=== PATIENT | female | born 1990 | race Caucasian/White ===

== ENCOUNTER 2016-07-27 15:08 | Emergency (ER) | payer OTHER ==
--- NOTE | 2016-07-27 15:39 | ED NURSING NOTES ---
Clinical Report - Nurses [facility] [address] [place] [address] 07/27/2016 15:08 Patient: SRI JEAN TRIAGE Triage time 1522 PM. Acuity: LEVEL 5. Chief Complaint: (Right wisdom teeth radiating to neck pain). Alert. No acute distress. JASWINDER COMA SCORE: Jaswinder Coma Scale: 15- eyes open spontaneously (4); best verbal response- oriented x 4 (5); best motor response- obeys commands (6). --15:30 Brigitte Vidales R.N. 15:22 07/27/16. BP: 122/73 (regular adult cuff) taken on the left arm, while sitting. HR: 90. RR: 15. O2 saturation: 100% on room air. Temp: 98 F. Pain level now: 03/05. --15:30 Brigitte Vidales R.N. Weight: 83.9 kg stated. Height/Length: 63 inches Per Patient. BMI: 32.8. --15:22 Brigitte Vidales R.N. Medications None. --15:24 Brigitte Vidales R.N. Allergies No Known Drug Allergy. --15:24 Brigitte Vidales R.N. Medication/allergy information source: the patient. --15:30 Brigitte Vidales R.N. History Arrived by private vehicle. Historian: patient. Primary physician ([facility]). ( PT states has been having trouble with wisdom (right side) since last year, due to insurance has not been able to get them "out" Pt has was told that needed to have general surgery due to anxiety and has tried contacting [facility] multiple times. Is afraid that is "infected"). This started last night. No fever, weakness, cough, difficulty breathing or skin rash. Denies muscle aches. Treatment HOSPITAL NURSING ASSISTANT: Took ibuprofen. PAST MEDICAL HX: Immunizations: status is unknown. SOCIAL HX: Light tobacco smoker- less than 1/2 a pack per day. No alcohol use or drug use. No infectious disease exposure. ABUSE ASSESSMENT: No report of abuse. SELF HARM ASSESSMENT: A self harm assessment was performed. The patient answered "no" to the question "Do you have thoughts of harming or killing yourself?" and "Have you recently had thoughts about harming or killing others?". FALL RISK ASSESSMENT: Fall risk assessment completed. No fall risk identified. NUTRITIONAL RISK ASSESSMENT: The nutritional risk assessment revealed no deficiencies. FUNCTIONAL ASSESSMENT: Functional assessment: no impairments noted. LEARNING NEEDS ASSESSMENT: The learning needs assessment revealed no barriers. SKIN INTEGRITY ASSESSMENT: Skin integrity risk assessment completed. No skin integrity risk identified. --15:30 Brigitte Vidales R.N. PROBLEMS: Dental Pain. Bronchitis. Asthma. Tension-Type Headache. Headache. Pharyngitis. Immunizations. LNMP - Last Normal Menstrual Period. --15:24 Brigitte Vidales R.N. ADDITIONAL SURGERIES: no known surgeries. Interventions ID band on patient. --15:30 Brigitte Vidales R.N. PHYSICAL ASSESSMENT Ambulatory to room. GENERAL / NEURO / PSYCH: Alert. Oriented X 4. Appears in no acute distress. Appears in pain. HEENT: Mucous membranes are pink. RESPIRATORY: Respirations not labored. Breath sounds within normal limits. SKIN: Skin intact. Skin is warm and dry. Normal skin turgor. --15:31 Briigtte Vidales R.N. NURSING PROGRESS NOTES The initial plan of care for this patient has been created This plan of care was discussed with the patient. Reassurance given. Two patient identifiers checked. Call light placed in reach. Brakes of bed on. Brakes of chair on. --15:31 Brigitte Vidales R.N. DISPOSITION / DISCHARGE Departure time: 1540 PM. Condition at departure: stable. The goals identified in the patient's plan of care were met. No learning barriers present. Discharge instructions provided and reviewed with the patient. Reviewed medication(s) side effects, precautions, dosing and course information. Prescription(s) given to the patient. Reviewed referral to a dentist for followup. Patient verbalized understanding. Written instructions provided in Armenian. ( Print out given of low cost dentist in the area). No diet instructions or activity restrictions. FALL RISK ASSESSMENT: Fall risk assessment completed. No fall risk identified. --15:44 Brigitte Vidales R.N. 15:35 07/27/16. BP: 124/87 (regular adult cuff) taken on the left arm, via an automated monitor, while sitting. HR: 90. RR: 16. O2 saturation: 100%. Temp: 98 F (oral). Pain level now: 02/02. --15:44 Brigitte Vidales R.N. Locked/Released at 07/27/2016 15:44 by Brigitte Vidales R.N.
--- NOTE | 2016-07-27 15:39 | ED CLINICAL REPORT ---
Clinical Report - Physicians/Mid Levels [facility] [address] [place] [address] 07/27/2016 15:08 [id number] Time Seen: 15:35 Jul 27 2016. Arrived- By private vehicle. Historian- patient. HISTORY OF PRESENT ILLNESS Chief Complaint: DENTAL PAIN. This started months ago but worsening over the last 2 weeks. and is still present (worse). Pain described as moderate. No sore throat, nasal discharge, ear pain or swollen jaw or face. No jaw pain or facial pain. She has had toothache. (Patient says that her dentist told her she needs to have her wisdom teeth taken out because they are crowding the other teeth. However, she has a history of anxiety and says she needs general anesthesia. She has been trying to find a dentist who will perform this.). Similar symptoms previously: Recent medical care: Not recently seen/assessed. REVIEW OF SYSTEMS No fever, nausea, headache, vomiting or chest pain. All systems otherwise negative, except as recorded above. PAST HISTORY Negative. No history of heart disease, renal disease or diabetes mellitus. SOCIAL HISTORY Smoker- current status unknown. PHYSICAL EXAM Appearance: No acute distress. Head: Normal external inspection. Eyes: Pupils equal, round and reactive to light. Conjunctivae and eyelids normal. ENT: Ears normal. Right lower third molar(s): (soft tissue overgrowth of the right third molar. No erythema, edema or discharge.). No fracture. Pharynx normal. Lips normal. Gums normal. No trismus present. Uvula midline. Neck: Normal inspection. Trachea midline. No adenopathy. Neck supple. Respiratory: No respiratory distress. Skin: Normal skin color. Normal skin turgor. Extremities: Extremities exhibit normal ROM. Neuro: Oriented X 3. PROGRESS AND PROCEDURES Course of Care: 15:48 07/27/16. Patient stable. This is a long-standing issue which has slowly been getting worse. No evidence of abscess or deep space infection at this time. Recommended salt water gargles, retraction of the overgrowing skin with a toothbrush, Tylenol and ibuprofen for pain. Primarily she needs to find a dentist. Offered a few sleeping pillsas she says primarily the pain is worse at night, however, she declines this. Differential Diagnosis: I considered migraine, bacterial meningitis, trigeminal neuralgia and muscle tension as a possible cause of headache in this patient. CLINICAL IMPRESSION Moderate dental pain. INSTRUCTIONS No dietary restrictions. Do not smoke. Warnings: GENERAL WARNINGS: Return or contact your physician immediately if your condition worsens or changes unexpectedly, if not improving as expected, or if other problems arise. Specifically return if vomiting or fever worsens. OTC Medications: Take acetaminophen (Tylenol, Datril, etc.) and ibuprofen (Advil, Nuprin, etc.) according to label instructions. Available over the counter. Follow-up: Follow up with doctor [facility] Mekhi; [facility] [place] [address]; . Understanding of the discharge instructions verbalized by patient. Follow-up with: Susan Gomez MD, [facility], , [facility], [address] [place] [address] Follow up as needed. Reason for referral: to [facility] a primary care provider. (Electronically signed by Pio Hood, 07/27/2016 16:26) Anastasia holt SRI JEAN VisitID: [id number] Date: 07/27/2016 07/27/2016 15:44 Plan of care and patient's course as well as examination is been reviewed verbally with the provider myself. I have reviewed the patient's chart up until this point and agree with the assessment and plan. (Electronically signed by Gregg Shahid Dr. - 07/27/2016 15:44)
--- NOTE | 2016-07-27 15:39 | ED CLINICAL REPORT ---
Clinical Report - Physicians/Mid Levels [facility] [address] [place] [address] 07/27/2016 15:08 [id number] Time Seen: 15:35 Jul 27 2016. Arrived- By private vehicle. Historian- patient. HISTORY OF PRESENT ILLNESS Chief Complaint: DENTAL PAIN. This started months ago but worsening over the last 2 weeks. and is still present (worse). Pain described as moderate. No sore throat, nasal discharge, ear pain or swollen jaw or face. No jaw pain or facial pain. She has had toothache. (Patient says that her dentist told her she needs to have her wisdom teeth taken out because they are crowding the other teeth. However, she has a history of anxiety and says she needs general anesthesia. She has been trying to find a dentist who will perform this.). Similar symptoms previously: Recent medical care: Not recently seen/assessed. REVIEW OF SYSTEMS No fever, nausea, headache, vomiting or chest pain. All systems otherwise negative, except as recorded above. PAST HISTORY Negative. No history of heart disease, renal disease or diabetes mellitus. SOCIAL HISTORY Smoker- current status unknown. PHYSICAL EXAM Appearance: No acute distress. Head: Normal external inspection. Eyes: Pupils equal, round and reactive to light. Conjunctivae and eyelids normal. ENT: Ears normal. Right lower third molar(s): (soft tissue overgrowth of the right third molar. No erythema, edema or discharge.). No fracture. Pharynx normal. Lips normal. Gums normal. No trismus present. Uvula midline. Neck: Normal inspection. Trachea midline. No adenopathy. Neck supple. Respiratory: No respiratory distress. Skin: Normal skin color. Normal skin turgor. Extremities: Extremities exhibit normal ROM. Neuro: Oriented X 3. PROGRESS AND PROCEDURES Course of Care: 15:48 07/27/16. Patient stable. This is a long-standing issue which has slowly been getting worse. No evidence of abscess or deep space infection at this time. Recommended salt water gargles, retraction of the overgrowing skin with a toothbrush, Tylenol and ibuprofen for pain. Primarily she needs to find a dentist. Offered a few sleeping pillsas she says primarily the pain is worse at night, however, she declines this. Differential Diagnosis: I considered migraine, bacterial meningitis, trigeminal neuralgia and muscle tension as a possible cause of headache in this patient. CLINICAL IMPRESSION Moderate dental pain. INSTRUCTIONS No dietary restrictions. Do not smoke. Warnings: GENERAL WARNINGS: Return or contact your physician immediately if your condition worsens or changes unexpectedly, if not improving as expected, or if other problems arise. Specifically return if vomiting or fever worsens. OTC Medications: Take acetaminophen (Tylenol, Datril, etc.) and ibuprofen (Advil, Nuprin, etc.) according to label instructions. Available over the counter. Follow-up: Follow up with doctor [facility] Mekhi; [facility] [place] [address]; . Understanding of the discharge instructions verbalized by patient. Follow-up with: Susan Gomez MD, [facility], , [facility], [address] [place] [address] Follow up as needed. Reason for referral: to [facility] a primary care provider. (Electronically signed by Pio Hood, 07/27/2016 16:26) Anastasia holt SRI JEAN VisitID: [id number] Date: 07/27/2016 07/27/2016 15:44 Plan of care and patient's course as well as examination is been reviewed verbally with the provider myself. I have reviewed the patient's chart up until this point and agree with the assessment and plan. (Electronically signed by Gregg Shahid Dr. - 07/27/2016 15:44)
--- NOTE | 2016-07-27 15:39 | ED NURSING NOTES ---
Clinical Report - Nurses [facility] [address] [place] [address] 07/27/2016 15:08 Patient: SRI JEAN TRIAGE Triage time 1522 PM. Acuity: LEVEL 5. Chief Complaint: (Right wisdom teeth radiating to neck pain). Alert. No acute distress. JASWINDER COMA SCORE: Jaswinder Coma Scale: 15- eyes open spontaneously (4); best verbal response- oriented x 4 (5); best motor response- obeys commands (6). --15:30 Brigitte Vidales R.N. 15:22 07/27/16. BP: 122/73 (regular adult cuff) taken on the left arm, while sitting. HR: 90. RR: 15. O2 saturation: 100% on room air. Temp: 98 F. Pain level now: 03/05. --15:30 Brigitte Vidales R.N. Weight: 83.9 kg stated. Height/Length: 63 inches Per Patient. BMI: 32.8. --15:22 Brigitte Vidales R.N. Medications None. --15:24 Brigitte Vidales R.N. Allergies No Known Drug Allergy. --15:24 Brigitte Vidales R.N. Medication/allergy information source: the patient. --15:30 Brigitte Vidales R.N. History Arrived by private vehicle. Historian: patient. Primary physician ([facility]). ( PT states has been having trouble with wisdom (right side) since last year, due to insurance has not been able to get them "out" Pt has was told that needed to have general surgery due to anxiety and has tried contacting [facility] multiple times. Is afraid that is "infected"). This started last night. No fever, weakness, cough, difficulty breathing or skin rash. Denies muscle aches. Treatment MANAGER DENTAL: Took ibuprofen. PAST MEDICAL HX: Immunizations: status is unknown. SOCIAL HX: Light tobacco smoker- less than 1/2 a pack per day. No alcohol use or drug use. No infectious disease exposure. ABUSE ASSESSMENT: No report of abuse. SELF HARM ASSESSMENT: A self harm assessment was performed. The patient answered "no" to the question "Do you have thoughts of harming or killing yourself?" and "Have you recently had thoughts about harming or killing others?". FALL RISK ASSESSMENT: Fall risk assessment completed. No fall risk identified. NUTRITIONAL RISK ASSESSMENT: The nutritional risk assessment revealed no deficiencies. FUNCTIONAL ASSESSMENT: Functional assessment: no impairments noted. LEARNING NEEDS ASSESSMENT: The learning needs assessment revealed no barriers. SKIN INTEGRITY ASSESSMENT: Skin integrity risk assessment completed. No skin integrity risk identified. --15:30 Brigitte Vidales R.N. PROBLEMS: Dental Pain. Bronchitis. Asthma. Tension-Type Headache. Headache. Pharyngitis. Immunizations. LNMP - Last Normal Menstrual Period. --15:24 Brigitte Vidales R.N. ADDITIONAL SURGERIES: no known surgeries. Interventions ID band on patient. --15:30 Brigitte Vidales R.N. PHYSICAL ASSESSMENT Ambulatory to room. GENERAL / NEURO / PSYCH: Alert. Oriented X 4. Appears in no acute distress. Appears in pain. HEENT: Mucous membranes are pink. RESPIRATORY: Respirations not labored. Breath sounds within normal limits. SKIN: Skin intact. Skin is warm and dry. Normal skin turgor. --15:31 Brigitte Vidales R.N. NURSING PROGRESS NOTES The initial plan of care for this patient has been created This plan of care was discussed with the patient. Reassurance given. Two patient identifiers checked. Call light placed in reach. Brakes of bed on. Brakes of chair on. --15:31 Brigitte Vidales R.N. DISPOSITION / DISCHARGE Departure time: 1540 PM. Condition at departure: stable. The goals identified in the patient's plan of care were met. No learning barriers present. Discharge instructions provided and reviewed with the patient. Reviewed medication(s) side effects, precautions, dosing and course information. Prescription(s) given to the patient. Reviewed referral to a dentist for followup. Patient verbalized understanding. Written instructions provided in Slovenian. ( Print out given of low cost dentist in the area). No diet instructions or activity restrictions. FALL RISK ASSESSMENT: Fall risk assessment completed. No fall risk identified. --15:44 Brigitte Vidales R.N. 15:35 07/27/16. BP: 124/87 (regular adult cuff) taken on the left arm, via an automated monitor, while sitting. HR: 90. RR: 16. O2 saturation: 100%. Temp: 98 F (oral). Pain level now: 02/02. --15:44 Brigitte Vidales R.N. Locked/Released at 07/27/2016 15:44 by Brigitte Vidales R.N.
--- NOTE | 2016-07-27 16:26 | ED MAR SUMMARY ---
..... Medication Administration [facility] [address], [place] [id number] Patient: SRI JEAN Visit ID: [id number] 26y, F Weight: 83.9 kg Height/Length: 63 in BMI: 32.8 ALLERGIES: No Known Drug Allergy
--- NOTE | 2016-07-27 16:26 | ED MED RECONCILIATION SUMMARY ---
Patient: SRI JENA Medication Reconciliation Report [facility] VisitID: [id number] [place] [address] 26y, F Registration Date/Time: 07/27/2016 Weight: 83.9 kg Height/Length: 63 in. BMI: 32.8 ALLERGIES: No Known Drug Allergy The patient's Home Medications are listed below: NONE. The source(s) of the original Home Medication information: patient The following Medications were given to the patient in the Emergency Department: None. The following Medications were prescribed to the patient: Take acetaminophen (Tylenol, Datril, etc.) and ibuprofen (Advil, Nuprin, etc.) according to label instructions. Available over the counter. -- Pio Hood
--- NOTE | 2016-07-27 16:26 | ED DISCHARGE INSTRUCTIONS ---
Patient: SRI JEAN General Instructions [facility] VisitID: [id number] [address] [place], [place] [id number] 26y, F Registration Date/Time: 07/27/2016 Moderate dental pain. INSTRUCTIONS No dietary restrictions. Do not smoke. Warnings: GENERAL WARNINGS: Return or contact your physician immediately if your condition worsens or changes unexpectedly, if not improving as expected, or if other problems arise. Specifically return if vomiting or fever worsens. OTC Medications: Take acetaminophen (Tylenol, Datril, etc.) and ibuprofen (Advil, Nuprin, etc.) according to label instructions. Available over the counter. Follow-up: Follow up with doctor LUCINDA Gaming; [address] [place] [address]; . Understanding of the discharge instructions verbalized by patient. Follow-up with: Susan Gomez MD, [facility], , [facility], [address] [place] [address] Follow up as needed. Reason for referral: to [facility] a primary care provider. ADDITIONAL INFORMATION Dental Pain A crack or cavity in the tooth, which exposes the sensitive inner area of the tooth can cause tooth pain. An infection in the gum or the root of the tooth can cause pain and swelling. The pain is often made worse by drinking hot or cold fluids, or biting on hard foods. Pain may spread from the tooth to the ear or jaw on the same side. Home Care: Avoid hot and cold foods and liquids since your tooth may be sensitive to temperature changes. If your tooth is chipped or cracked, or if there is a large open cavity, apply OIL OF CLOVES (available dkox-ihl-jmrwzcq in drug stores) directly to the tooth to reduce pain. Some pharmacies carry an wecu-tqn-mcylipc "toothache kit." This contains a paste, which can be applied over the exposed tooth to decrease sensitivity. A cold pack on your jaw over the sore area may help reduce pain. You may use acetaminophen (Tylenol) or ibuprofen (Motrin, Advil) to control pain, unless another medicine was prescribed. [ NOTE: If you have chronic liver or kidney disease or ever had a stomach ulcer or GI bleeding, talk with your doctor before using these medicines.] If you have signs of an infection, an antibiotic will be given. Take it as directed. Follow-Up as directed with a dentist. Your pain may go away with the treatment given. However, only a dentist can fully evaluate and treat the cause and prevent the pain from coming back again. TOOTHACHE IS A SIGN OF DISEASE IN YOUR TOOTH AND SHOULD BE EXAMINED AND TREATED BY A DENTIST. Get Prompt Medical Attention if any of the following occur: Your face becomes swollen or red Pain worsens or spreads to the neck Fever over 100.4 F (38.0 C) Unusual drowsiness; headache or stiff neck; weakness or fainting Pus drains from the tooth Difficulty swallowing or breathing You have been given the following additional information: Dental Pain (Electronically signed by Pio Hood, 07/27/2016 16:26)
--- NOTE | 2016-07-27 16:26 | ED MED RECONCILIATION SUMMARY ---
Patient: SRI JEAN Medication Reconciliation Report [facility] VisitID: [id number] [place] [address] 26y, F Registration Date/Time: 07/27/2016 Weight: 83.9 kg Height/Length: 63 in. BMI: 32.8 ALLERGIES: No Known Drug Allergy The patient's Home Medications are listed below: NONE. The source(s) of the original Home Medication information: patient The following Medications were given to the patient in the Emergency Department: None. The following Medications were prescribed to the patient: Take acetaminophen (Tylenol, Datril, etc.) and ibuprofen (Advil, Nuprin, etc.) according to label instructions. Available over the counter. -- Pio Hood
--- NOTE | 2016-07-27 16:26 | ED DISCHARGE INSTRUCTIONS ---
Patient: SRI JEAN General Instructions [facility] VisitID: [id number] [address] [place], [place] [id number] 26y, F Registration Date/Time: 07/27/2016 Moderate dental pain. INSTRUCTIONS No dietary restrictions. Do not smoke. Warnings: GENERAL WARNINGS: Return or contact your physician immediately if your condition worsens or changes unexpectedly, if not improving as expected, or if other problems arise. Specifically return if vomiting or fever worsens. OTC Medications: Take acetaminophen (Tylenol, Datril, etc.) and ibuprofen (Advil, Nuprin, etc.) according to label instructions. Available over the counter. Follow-up: Follow up with doctor LUCINDA Gaming; [address] [place] [address]; . Understanding of the discharge instructions verbalized by patient. Follow-up with: Susan Gomez MD, [facility], , [facility], [address] [place] [address] Follow up as needed. Reason for referral: to [facility] a primary care provider. ADDITIONAL INFORMATION Dental Pain A crack or cavity in the tooth, which exposes the sensitive inner area of the tooth can cause tooth pain. An infection in the gum or the root of the tooth can cause pain and swelling. The pain is often made worse by drinking hot or cold fluids, or biting on hard foods. Pain may spread from the tooth to the ear or jaw on the same side. Home Care: Avoid hot and cold foods and liquids since your tooth may be sensitive to temperature changes. If your tooth is chipped or cracked, or if there is a large open cavity, apply OIL OF CLOVES (available zzrw-oqa-krgixwd in drug stores) directly to the tooth to reduce pain. Some pharmacies carry an gjav-bci-ibagrtn "toothache kit." This contains a paste, which can be applied over the exposed tooth to decrease sensitivity. A cold pack on your jaw over the sore area may help reduce pain. You may use acetaminophen (Tylenol) or ibuprofen (Motrin, Advil) to control pain, unless another medicine was prescribed. [ NOTE: If you have chronic liver or kidney disease or ever had a stomach ulcer or GI bleeding, talk with your doctor before using these medicines.] If you have signs of an infection, an antibiotic will be given. Take it as directed. Follow-Up as directed with a dentist. Your pain may go away with the treatment given. However, only a dentist can fully evaluate and treat the cause and prevent the pain from coming back again. TOOTHACHE IS A SIGN OF DISEASE IN YOUR TOOTH AND SHOULD BE EXAMINED AND TREATED BY A DENTIST. Get Prompt Medical Attention if any of the following occur: Your face becomes swollen or red Pain worsens or spreads to the neck Fever over 100.4 F (38.0 C) Unusual drowsiness; headache or stiff neck; weakness or fainting Pus drains from the tooth Difficulty swallowing or breathing You have been given the following additional information: Dental Pain (Electronically signed by Pio Hood, 07/27/2016 16:26)
--- NOTE | 2016-07-27 16:26 | ED MAR SUMMARY ---
..... Medication Administration Record [facility] [address] [id number] Patient: SRI JEAN Visit ID: [id number] 26y, F Weight: 83.9 kg Height/Length: 63 in BMI: 32.8 ALLERGIES: No Known Drug Allergy
== END 2016-07-27 15:40 | disposition home or self-care (01) ==
LOC: ED SRH 15:08
DX: K08.89 Other specified disorders of teeth and supporting structures (principal); F17.210 Nicotine dependence, cigarettes, uncomplicated; J45.909 Unspecified asthma, uncomplicated